=== PATIENT | male | born 2000 | race Two or more races ===

== ENCOUNTER 2021-08-27 23:43 | Emergency (ER) | payer OTHER ==
[~2021-08-27] VITALS: Ht 162.6 cm; Wt 54.4 kg
[2021-08-28] MEDS ORDERED: PRENATAL + DHA1 EAC1 PO (00:04)
[2021-08-28] MEDS ORDERED: MEDROL4 MG PO (03:52)
[2021-08-28] MEDS ORDERED: BENADRYL25 MG PO (03:52)
== END 2021-08-28 04:15 ==
LOC: ER 23:43
DX: L50.9 Urticaria, unspecified (principal)